=== PATIENT | male | born 1960 | race Two or more races ===

== ENCOUNTER 2019-05-01 08:43 | Day surgery (SDC) | payer OTHER ==
[~2019-05-01] VITALS: Ht 165.1 cm; Wt 67.1 kg
[2019-05-01] VITALS (10 sets, daily range): BP systolic 106–150; BP diastolic 67–85
--- NOTE | 2019-05-01 07:02 | Pre-Procedure Note/Attestation ---
Pre-Procedure Note/Attestation Complete Prior to Procedure Planned Procedure: left Procedure Narrative: left shoulder scope, sad, mini simin, rtc repair Indications for Procedure Pre-Operative Diagnosis: left shoulder rtc tear Attestation I attest that I discussed the nature of the procedure; its benefits; risks and complications; and alternatives (and the risks and benefits of such alternatives ), prior to the procedure, with the patient (or the patient's legal clearance representative). I attest that, if there was a reasonable possibility of needing a blood transfusion, the patient (or the patient's legal clearance representative) was given the [facility] standardized written summary, pursuant to the [place] Blood Safety Act ([place] Health and Safety Code # 1645, as amended). I attest that I re-evaluated the patient just prior to the surgery and that there has been no change in the patient's H&P, except as documented below: none Christofer White MD May 01, 2019 07:02
--- NOTE | 2019-05-01 08:41 | Anethesia Preoperative Eval ---
Anesthesia Pre-op PMH/ROS General Date of Evaluation: May 01, 2019 Anesthesiologist: Leon ASA Score: ASA 2 Mallampati Score Class I : Soft palate, uvula, fauces, pillars visible Class II: Soft palate, uvula, fauces visible Class III: Soft palate, base of uvula visible Class IV: Only hard plate visible Mallampati Classification: Class II Surgeon: Cindy Diagnosis: Left rotator cuff tear Surgical Procedure: left shoulder arthrscpy with rcr Anesthesia History: none Family History: no anesthesia problems Allergies: Coded Allergies: No Known Allergies (Unverified , 05/01/19) Medications: see eMAR Patient NPO?: Yes NPO Date: May 01, 2019 NPO Time: 00:00 Past Medical History Cardiovascular: Reports: HTN; Denies: CAD, RI, valve dz, arrhythmia, other Pulmonary: Denies: asthma, COPD, STACIE, other Gastrointestinal/Genitourinary: Denies: GERD, CRI, ESRD, other Neurologic/Psychiatric: Denies: dementia, CVA, depression/anxiety, TIA, other Endocrine: Denies: DM, hypothyroidism, steroids, other HEENT: Denies: cataract (L), cataract (R), glaucoma, [place] (L), [place] (R), other Hematology/Immune: Denies: anemia, DVT, bleeding disorder, other Musculoskeletal/Integumentary: Denies: OA, RA, DJD, DDD, edema, other PSxH Narrative: ex-lap, appy Anesthesia Pre-op Phys. Exam Physician Exam see chart Constitutional: NAD Cardiovascular: RRR Respiratory: CTA Airway Exam Mallampati Score: Class II MO: full ROM: full Anesthesia Pre-op A/P Labs see chart Studies Pre-op Studies: EKG - sr Risk Assessment & Plan Assessment: ASA II Plan: GA with interscalene nerve blck Status Change Before Surgery: No Pre-Antibiotics Drug: Ancef Given Within 1 Hr of Incision: Yes Carleen Sanon MD May 01, 2019 08:41
[~2019-05-01 08:43] MED LIST: ceFAZolin 1gm IVPB IVPB ONE; celeBREX 200mg Cap **SURGERY PATIENTS ONLY ORAL ONE; oxyCONTIN 20mg tab ORAL ONE
[2019-05-01] MEDS ORDERED: oxyCONTIN 20mg tab ORAL ONE (09:21)
[2019-05-01] MEDS ORDERED: celeBREX 200mg Cap **SURGERY PATIENTS ONLY ORAL ONE (09:21)
[2019-05-01] MEDS ORDERED: LR 1000ml 1,000 ML IVLG SCH (10:03)
[2019-05-01] MEDS ORDERED: DiphenhydrAMINE 50mg/ml Inj IVP PRN (10:15)
[2019-05-01] MEDS ORDERED: Ketorolac 30mg Inj IV PRN (10:15)
[2019-05-01] MEDS ORDERED: LORazepam Inj 2mg/ml 1ml IV PRN (10:15)
[2019-05-01] MEDS ORDERED: Midazolam 2mg/2ml Inj IVP PRN (10:15)
[2019-05-01] MEDS ORDERED: Hydromorphone 0.5mg/0.5ml inj IVP PRN (10:15)
[2019-05-01] MEDS ORDERED: Metoclopramide 10mg/2ml Inj IVP PRN (10:15)
[2019-05-01] MEDS ORDERED: fentaNYL 100 mcg/2 mL IV PRN (10:15)
[2019-05-01] MEDS ORDERED: Lidocaine 1% MPF 10mg/ml 5ml ONE (10:25)
[2019-05-01] MEDS ORDERED: Midazolam 2mg/2ml Inj ONE (10:25)
[2019-05-01] MEDS ORDERED: fentaNYL 100 mcg/2 mL IV ONE (10:25)
[2019-05-01] MEDS ORDERED: Propofol 200mg/20ml IV ONE (10:25)
[2019-05-01] MEDS ORDERED: LR 1000ml ONE (10:30)
[2019-05-01] MEDS ORDERED: NS Irrig 4000ml IRRIG ONE (10:30)
[2019-05-01] MEDS ORDERED: EPINEPHrine 1mg/1ml Amp ONE (11:29)
--- NOTE | 2019-05-01 12:18 | Immediate Post-Op Evaluation ---
Immediate Post-Op Evalulation Immediate Post-Op Evalulation Procedure: Left shoulder arthroscopy with rcr Date of Evaluation: May 01, 2019 Time of Evaluation: 12:19 IV Fluids: 1L Blood Products: 0 Estimated Blood Loss: min Urinary Output: 0 Blood Pressure Systolic: 113 Blood Pressure Diastolic: 67 Pulse Rate: 58 Respiratory Rate: 16 O2 Sat by Pulse Oximetry: 100 Temperature (Fahrenheit): 97.3 Pain Score (1-10): 0 Nausea: No Vomiting: No Complications 0 Patient Status: awake, reacts, patent, none Hydration Status: adequate Drug: Ancef 1g Given Within 1 Hr of Incision: Yes Carleen Sanon MD May 01, 2019 12:17
--- NOTE | 2019-05-01 12:18 | 48 Hour Post Anesthesia Eval ---
Post Anesthesia Evaluation Procedure: Left shoulder arthroscopy with rcr Date of Evaluation: May 01, 2019 Airway: patent Nausea: No Vomiting: No Pain Intensity: 0 Hydration Status: adequate Cardiopulmonary Status: at baseline Mental Status/LOC: patient returned to baseline Post-Anesthesia Complications: 0 Follow-up care needed: ready to discharge Carelen Sanon MD May 01, 2019 12:18
--- NOTE | 2019-05-01 12:34 | Brief Operative Note ---
Immediate Post Operative Note Operative Note Chief Complaint: left shoulder pain Pre-op Diagnosis: left shoulder rtc tear Procedure: left shoulder scope, sad, mini simin, rtc repair Post-op Diagnosis: same as pre-op Findings: consistent w/pre-op dx studies Surgeon: md adam Veneer Press Operator: betty bain Anesthesiologist: md oneal Anesthesia: general, regional Specimen: none Complications: none Condition: stable Fluids: ns Estimated Blood Loss: minimal Drains: none Implant(s) used?: Yes - biomet Christofer White MD May 01, 2019 12:34
--- NOTE | 2019-05-01 15:45 | Operative Note - Dictated ---
DATE OF OPERATION: 05/01/2019 PREOPERATIVE DIAGNOSIS: Left shoulder rotator cuff tear. POSTOPERATIVE DIAGNOSES: 1. Left shoulder anterior and posterior labral fraying and tearing without detachment from glenoid. 2. Left shoulder impingement. 3. Left shoulder bone spur underneath the clavicle. 4. Left shoulder 1 cm bursal-sided rotator cuff tear, unstable. PROCEDURE: 1. Left shoulder arthroscopy and extensive intra-articular shaving. 2. Left shoulder debridement of the anterior and superior labrum. 3. Left shoulder subacromial bursoscopy, bursectomy, and subacromial decompression. 4. Left shoulder mini-Jp procedure (resection of inferior 30% distal end of the clavicle for coplaning). 5. Left shoulder arthroscopic bursal-sided rotator cuff repair using single Biomet 2.9 mm JuggerKnot anchor in a horizontal mattress combined with a simple suture. SURGEON: Christofer White M.D. CHILD WELFARE ASSISTANT: Leighann Francis PA-C. Computer Support Technician was present during the actual operative portion of the case and was important and essential part of the operation. During the operation, the sociology research assistant held and operated the arthroscopic camera for visualization, assisted by manipulating the arm to help with visualization, and helped with essential parts of the repair process as necessary such as operating surgical instruments under surgeon supervision, suture management, and wound closures. ANESTHESIOLOGIST: Carleen Quintero M.D. ANESTHESIA: General LMA anesthesia. EBL: Minimal. COMPLICATIONS: None. SURGICAL INDICATION: The patient is a 58-year-old male, who sustained the above injury to his shoulder. The patient was treated non-operative initially, but this did not alleviate the patients symptoms. Therefore, after discussing all non-surgical and surgical options, and discussing all foreseeable risk and benefits of surgery, the patient opted for surgical treatment as described above. PATIENT POSITIONING: The patient was brought to the operating room table and was placed on the operating room table. All pressure points were well padded. General anesthesia was induced and patient was then placed in the lateral decubitus position. All pressure points were well padded again and an axillary roll was placed. The patient shoulder was then prepped and draped in the usual sterile fashion. Time-out was performed and the appropriate preoperative antibiotic was given by the anesthesiologist. EXAMINATION OF SHOULDER UNDER ANESTHESIA: The shoulder was examined under anesthesia with all muscles well relaxed. The shoulder was forward flexed, abducted and was placed through full range of external and internal rotation. The anterior, posterior, and inferior stability of the shoulder was checked. The exam revealed no evidence of adhesive capsulitis and no evidence of instability. PORTAL PLACEMENT: The posterior portal was established 2 cm inferior and 1 cm medial to the edge of the posterior acromion. A 1 cm skin incision was made using an eleven blade and using the blunt obturator, the cannula was gently placed through the capsule. The mid-glenoid portal was established just lateral to the coracoid process under direct visualization. Direction of the cannula was first established using a spinal needle, and subsequently, the cannula was placed through the capsule with a blunt obturator. DIAGNOSTIC ARTHROSCOPY: The biceps tendon was probed and pulled through the joint for visualization. It appeared normal. The biceps anchor was palpated with a probe and was visualized. There was some fraying of the superior labrum, but there was no detachment from glenoid. The posterior labrum and axillary recess was visualized. There was some fraying of the posterior labrum, but there was no detachment from glenoid. The glenoid articular surface was visualized and it appeared normal. The articular surface of the rotator cuff was visualized and probed next. There was no evidence of articular sided rotator cuff tear extending from the supraspinatus back to the posterior cuff. The Humeral head articular surface was then visualized. There was no evidence of articular cartilage damage. Next the anterior labrum, middle glenohumeral ligament, subscapularis tendon, and the anterior inferior glenohumeral ligament were evaluated. These structures were completely normal. At this point, the scope was moved to the mid-glenoid portal and the posterior structures including the posterior labrum, posterior capsule and posterior cuff were visualized. There was some fraying of the posterior labrum, but there was no detachment of the glenoid labrum. The subscapularis recess was devoid of any loose bodies and the anterior capsule was well attached to the humeral neck. The middle and anterior inferior glenohumeral ligament was visualized. These structures were completely normal. OPERATIVE DEBRIDEMENTS AND REPAIR: Care was given to all partial thickness tears and frayed structures in the shoulder joint. The frayed rotator cuff and labrum was debrided using a shaver initially through the anterior portal and subsequently through the posterior portal to complete the debridement. This allowed for smooth debridement of all affected structures and all loose fragments were removed. DIAGNOSTIC BURSOSCOPY AND SUBACROMIAL DECOMPRESSION: The subacromial bursa was entered from the posterior portal. The anterior portal was established under the CA ligament using a switching stick. Subacromial arthroscopy was initiated. There was extensive bursitis and thickened and inflamed bursa tissue present. The CA ligament appeared to be scuffed and frayed. The shaver was placed through the anterior cannula and debridement of the hypertrophic bursa tissue was accomplished. Once visualization was adequate, a lateral portal was established using a blunt trochar in the mid portion of the acromion bone in the anterior-posterior direction and approximately 2 cm lateral to the lateral edge of the acromion. Using combination of shaver and electrocautery the CA ligament was released from the undersurface of the acromion and a complete bursectomy was accomplished. At this point, a subacromial decompression was performed using a eron initially taking off 5-8 mm of the anterolateral edge of the acromion from the lateral portal and viewing from the posterior portal. Then the lateral border of the undersurface of the acromion was decompressed to the same dept as the anterolateral edge. A posterior trough was then created in the acromion in line with the posterior edge of the clavicle. At this point, the scope was placed in the lateral portal and the subacromial decompression was performed from the posterior portal decompressing the undersurface of the acromion to dept of 5-8 mm. The decompression was performed anterior to the previously marked trough all the way medially to the level of the AC joint. At all times, care was given not to take off too much bone in order to avoid risk of fracture of the acromion. An excellent subacromial decompression was performed in this fashion. At this point, the bursal side of the rotator cuff was examined. All the bursa over the rotator cuff was removed and the rotator cuff was examined with a probe. The arm was placed into external rotation, neutral, and then internal rotation and there was a 1 cm bursal-sided rotator cuff tear that was unstable. The scope was then placed in the posterior portal and the subacromial decompression was rechecked to assure there is no area of bone spur that would be still impinging onto the rotator cuff. EVALUATION OF DISTAL CLAVICLE AND DISTAL CLAVICLE RESECTION: Care was given to the distal end of the clavicle. Using electrocautery and carrie, the distal end of the bursa and soft tissue around the distal end of the clavicle was debrided and cleaned. Care was given not to inflict excessive trauma to the ligaments of the AC joint. The distal end of the clavicle appeared to have an inferior osteophyte extending down well bellow the level of the acromion at the level of the AC joint. This appeared to be impinging onto the supraspinatus muscle belly and the musculotendinous junction of the rotator cuff. A mini-Jp procedure was performed by using a eron to resect the inferior 30% of the distal end of the clavicle. This decompression allowed space for the inferior structures to slide without impingement. This co-plained the inferior edge of the distal clavicle with the inferior edge of the acromion. For rotator cuff repair: The scope was placed in the lateral portal and the rotator cuff was visualized. The rotator cuff revealed a bursal-sided 1 cm unstable rotator cuff tear, which was crescent-shaped. The rotator cuff foot print adjacent to the articular cartilage of the humeral head was identified. This area was debrided initially using carrie and subsequently using eron to provide adequate bleeding bony surface to accept the rotator cuff tendon. Attention was given to repair the rotator cuff with as little tension as possible. At this point, an arthroscopic punch was used to create holes for suture anchor placement at the medial edge of the foot print through separate stab wound incisions and an arthroscopic tap was used to prepare the holes. One Biomet 2.9 mm JuggerKnot anchor double loaded with two #2 non-absorbable strong sutures was placed in previously prepared holes. Using standard arthroscopic suture passing instruments, the sutures were passed through the edge of rotator cuff with minimal trauma to the cuff tissue. Care was given to obtain large enough bites of the rotator cuff for the sutures to hold well. Once the sutures were passed through the cuff, the repair was secured onto the rotator cuff foot print using SMC sliding knots followed by 3 alternating-post half hitches. This allowed tension free repair of the rotator cuff with excellent stability and water tight closure. The cuff repair security was assured by palpating the repair with a probe. CONDITION AT DISCHARGE FROM OPERATING ROOM: The skin was re-approximated and sterile dressing and sling were applied. All lap counts and instrument counts were correct. The patient tolerated the procedure well without complications and was taken to the recovery room in stable conditions. Christofer White M.D. DR: DIONICIO JOB#: [id number] CC:
[2019-05-01] MEDS ORDERED: Tylenol #3 tab (300mg/30mg) ORAL PRN (18:16)
[2019-05-01] MEDS ORDERED: D5 1/2NS 1,000 ML IV SCH (18:16)
[2019-05-01] MEDS ORDERED: HYDROcodone/Acetamin 5/325 tab ORAL PRN (18:16)
[2019-05-01] MEDS ORDERED: HYDROmorphone 1mg/ml Carpuject SUBQ PRN (18:16)
== END 2019-05-01 13:30 | disposition home or self-care (01) ==
LOC: EDSEX 08:43 → SUR 08:43
DX: M75.112 Incomplete rotator cuff tear or rupture of left shoulder, not specified as traumatic (principal); M77.9 Enthesopathy, unspecified; M75.42 Impingement syndrome of left shoulder; S43.432A Superior glenoid labrum lesion of left shoulder, initial encounter; X58.XXXA Exposure to other specified factors, initial encounter; Y92.9 Unspecified place or not applicable; I10 Essential (primary) hypertension; Z90.89 Acquired absence of other organs
CPT/HCPCS: 29823; 29824; 29826; 29827; J0171; J0690; J2250; J2704; J3010; J7120; 94003; 94150; C1713

== ENCOUNTER 2019-09-04 10:58 | Day surgery (SDC) | payer OTHER ==
[~2019-09-04] VITALS: Ht 162.6 cm; Wt 63.5 kg
[2019-09-04] VITALS (10 sets, daily range): BP systolic 127–158; BP diastolic 79–88
--- NOTE | 2019-09-04 07:06 | Pre-Procedure Note/Attestation ---
Pre-Procedure Note/Attestation Complete Prior to Procedure Planned Procedure: left Procedure Narrative: left knee scope, medial meniscectomy and chondroplasty Indications for Procedure Pre-Operative Diagnosis: left knee medial meniscus tear Attestation I attest that I discussed the nature of the procedure; its benefits; risks and complications; and alternatives (and the risks and benefits of such alternatives ), prior to the procedure, with the patient (or the patient's legal wholesale representative). I attest that, if there was a reasonable possibility of needing a blood transfusion, the patient (or the patient's legal wholesale representative) was given the [facility] standardized written summary, pursuant to the [place] Blood Safety Act ([place] Health and Safety Code # 1645, as amended). I attest that I re-evaluated the patient just prior to the surgery and that there has been no change in the patient's H&P, except as documented below: NONE Christofer White MD Sep 04, 2019 07:06
[~2019-09-04 10:58] MED LIST changes: +LR 1000ml ONE; +NS Irrig 4000ml IRRIG ONE; +oxyCONTIN 10mg tab ORAL ONE; -oxyCONTIN 20mg tab ORAL ONE
[2019-09-04] MEDS ORDERED: oxyCONTIN 10mg tab ORAL ONE (11:46)
[2019-09-04] MEDS ORDERED: celeBREX 200mg Cap **SURGERY PATIENTS ONLY ORAL ONE (11:46)
[2019-09-04] MEDS ORDERED: Sterile Water Irrig 1000ml IRRIG ONE (12:00)
[2019-09-04] MEDS ORDERED: Tylenol #3 tab (300mg/30mg) ORAL PRN (12:00)
[2019-09-04] MEDS ORDERED: LR 1000ml ONE (12:00)
[2019-09-04] MEDS ORDERED: HYDROmorphone 1mg/ml Carpuject SUBQ PRN (12:00)
[2019-09-04] MEDS ORDERED: HYDROcodone/Acetamin 5/325 tab ORAL PRN ×2 (12:00→12:45)
[2019-09-04] MEDS ORDERED: Ropivacaine 5mg/ml Vial 20ml INJ ONE (12:23)
[2019-09-04] MEDS ORDERED: LR 1000ml 1,000 ML IVLG SCH (12:31)
--- NOTE | 2019-09-04 12:34 | Anethesia Preoperative Eval ---
Anesthesia Pre-op PMH/ROS General Date of Evaluation: Sep 04, 2019 Time of Evaluation: 12:13 Anesthesiologist: Michael ASA Score: ASA 3 Mallampati Score Class I : Soft palate, uvula, fauces, pillars visible Class II: Soft palate, uvula, fauces visible Class III: Soft palate, base of uvula visible Class IV: Only hard plate visible Mallampati Classification: Class II Surgeon: Cindy Diagnosis: L Knee Pain Surgical Procedure: L Knee Arthroscopy Family History: no anesthesia problems Allergies: Coded Allergies: No Known Allergies (Unverified , 09/04/19) Medications: see eMAR Patient NPO?: Yes Past Medical History Cardiovascular: Reports: HTN Gastrointestinal/Genitourinary: Reports: GERD PSxH Narrative: L Shoulder SX Anesthesia Pre-op Phys. Exam Physician Exam Last Vital Signs Date Time Temp Pulse Resp B/P (MAP) Pulse Ox O2 Delivery O2 Flow Rate FiO2 09/04/19 11:44 Room Air 09/04/19 11:38 97.3 66 18 141/84 99 Constitutional: NAD Neurologic: CN 2-12 intact Cardiovascular: RRR Respiratory: CTA Gastrointestinal: S/NT/ND Airway Exam Mallampati Score: Class II MO: full ROM: limited Teeth: missing Anesthesia Pre-op A/P Risk Assessment & Plan Assessment: ASA 3 Plan: GA, SED Status Change Before Surgery: No Pre-Antibiotics Dru Gram Ancef IV Given Within 1 Hr of Incision: Yes Time Given: 12:46 Bakari Rodriguez MD Sep 04, 2019 12:34
[2019-09-04] MEDS ORDERED: Sodium Chloride 10ml vial INJ ONE (12:35)
[2019-09-04] MEDS ORDERED: Lidocaine 1% MPF 10mg/ml 5ml ONE (12:35)
--- NOTE | 2019-09-04 12:35 | Immediate Post-Op Evaluation ---
Immediate Post-Op Evalulation Immediate Post-Op Evalulation Procedure: L Knee Arthroscopy Date of Evaluation: Sep 04, 2019 Time of Evaluation: 13:50 IV Fluids: 500 LR Blood Products: 0 Estimated Blood Loss: 7 Urinary Output: 0 Blood Pressure Systolic: 127 Blood Pressure Diastolic: 83 Pulse Rate: 64 Respiratory Rate: 16 O2 Sat by Pulse Oximetry: 97 Temperature (Fahrenheit): 97.6 Pain Score (1-10): 2 Nausea: No Vomiting: No Complications 0 Patient Status: awake, reacts, patent, extubated, none Hydration Status: adequate Dru Gram Ancef IV Given Within 1 Hr of Incision: Yes Time Given: 12:46 Bakari Rodriguez MD Sep 04, 2019 12:35
[2019-09-04] MEDS ORDERED: Midazolam 2mg/2ml Inj ONE (12:36)
[2019-09-04] MEDS ORDERED: Ketorolac 30mg Inj IV PRN ×2 (12:45)
[2019-09-04] MEDS ORDERED: Hydromorphone 0.5mg/0.5ml inj IVP PRN (12:45)
[2019-09-04] MEDS ORDERED: Midazolam 2mg/2ml Inj IVP PRN (12:45)
[2019-09-04] MEDS ORDERED: Meperidine 25mg/0.5ml Inj (FOR RIGORS ONLY) IV PRN (12:45)
[2019-09-04] MEDS ORDERED: Labetalol 5mg/ml 20ml vial IV PRN (12:45)
[2019-09-04] MEDS ORDERED: oxyCODONE HCL/Acetaminophen 5/325mg ORAL PRN (12:45)
[2019-09-04] MEDS ORDERED: fentaNYL 100 mcg/2 mL IV PRN (12:45)
[2019-09-04] MEDS ORDERED: LORazepam Inj 2mg/ml 1ml IV PRN (12:45)
[2019-09-04] MEDS ORDERED: Atropine Sulfate 0.4mg/ml inj IVP PRN (12:45)
[2019-09-04] MEDS ORDERED: Metoclopramide 10mg/2ml Inj IVP PRN (12:45)
[2019-09-04] MEDS ORDERED: HYDROcodone/Acetamin 7.5/325 tab ORAL PRN (12:45)
[2019-09-04] MEDS ORDERED: DiphenhydrAMINE 50mg/ml Inj IVP PRN (12:45)
[2019-09-04] MEDS ORDERED: Acetaminophen (Non formulary) 100 ML IV ONE (12:45)
[2019-09-04] MEDS ORDERED: NS Irrig 2000ml IRRIG ONE ×2 (12:46→13:50)
[2019-09-04] MEDS ORDERED: fentaNYL 100 mcg/2 mL IV ONE (13:04)
--- NOTE | 2019-09-04 13:25 | Brief Operative Note ---
Immediate Post Operative Note Operative Note Chief Complaint: left knee pain Pre-op Diagnosis: left knee medial meniscus tear Procedure: left knee scope medial meniscectomy Post-op Diagnosis: same as pre-op Findings: consistent w/pre-op dx studies Surgeon: md maynor Mileage Clerk: betty bain Anesthesiologist: md aminata Anesthesia: general Specimen: none Complications: none Condition: stable Fluids: ns Estimated Blood Loss: minimal Drains: none Implant(s) used?: Christofer Sue MD Sep 04, 2019 13:25
--- NOTE | 2019-09-04 13:27 | 48 Hour Post Anesthesia Eval ---
Post Anesthesia Evaluation Procedure: L Knee Arthroscopy Date of Evaluation: Sep 04, 2019 Time of Evaluation: 15:51 Blood Pressure Systolic: 126 0: 73 Pulse Rate: 54 Respiratory Rate: 18 Temperature (Fahrenheit): 98 O2 Sat by Pulse Oximetry: 99 Airway: patent Nausea: No Vomiting: No Pain Intensity: 2 Hydration Status: adequate Cardiopulmonary Status: Stable Mental Status/LOC: patient returned to baseline Follow-up Care/Observations: 0 Post-Anesthesia Complications: 0 Follow-up care needed: ready to discharge Bakari Rodriguez MD Sep 04, 2019 13:27
--- NOTE | 2019-09-04 16:45 | Operative Note - Dictated ---
DATE OF OPERATION: 09/04/2019 PREOPERATIVE DIAGNOSIS: Left knee posterior horn medial meniscus tearing. POSTOPERATIVE DIAGNOSIS: Left knee complex tear of the posterior horn-body of the medial meniscus involving 30% of the posterior horn-body of the medial meniscus. PROCEDURE: 1. Left knee arthroscopy and extensive intra-articular shaving. 2. Left knee partial medial meniscectomy involving 30% of the posterior horn of the medial meniscus on the inferior leaflet. SURGEON: Christofer White M.D. HOST/HOSTESS GROUND: Leighann Francis PA-C. Pan Devulcanizer was present during the actual operative portion of the case and was important and essential part of the operation. During the operation, the diver assistant held and operated the arthroscopic camera for visualization, assisted by manipulating the leg to help with visualization, and helped with essential parts of the repair process as necessary such as operating surgical instruments under surgeon supervision, suture management, and wound closures. ANESTHESIOLOGIST: Bakari Rodriguez M.D. ANESTHESIA: LMA. TOURNIQUET TIME: 30 minutes. EBL: Less than 20 mL. COMPLICATIONS: None. SURGICAL INDICATION: Patient is a 59-year-old male who sustained the above injury to his knee. The patient was treated non-operative initially, but this did not alleviate the patients symptoms. Therefore, after discussing all non-surgical and surgical options, and discussing all foreseeable risk and benefits of surgery, the patient opted for surgical treatment as described above. PATIENT POSITIONING: Patient was brought to the operating room table and placed supine. All pressure points were well padded. Time out was performed and preop antibiotics were given. General Anesthesia was induced and a well padded tourniquet was placed on the thigh. The lateral post was placed and positioned to allow for opening of the medial compartment of the knee without placing pressure over the fibular head. Patients entire leg was prepped and draped in the usual sterile fashion. Time out was performed and preoperative antibiotics were given and after exsanguinating the lower extremity, the tourniquet was inflated to 275 mm of mercury. EXAMINATION OF THE KNEE UNDER ANESTHESIA: Before prepping and draping the knee and while the patient was relaxed under general anesthesia, the knee was examined for ROM, and anterior and posterior, medial and lateral, posterolateral, and posteromedial instability. Pivot shift testing was performed. There was no evidence of loss of motion or instability and the pivot shift testing was negative. PORTAL PLACEMENT: The lateral portal was placed with the knee flexed to 90 degrees at the level of inferior border of the patella in line with the lateral border of the patella. A 0.5 cm skin incision was made with an eleven blade, and using a blunt obturator, the capsule was gently penetrated. Sterile saline solution was then infused inside the knee with the aid of a pump set at 35 mm mercury pressure. Under direct visualization, placement of the medial portal was preliminary judged using a spinal needle, and it was subsequently established using the same technique as the lateral portal. Care was given not to injure the cutaneous branches of the medial saphenous nerve or the subcutaneous veins. DIAGNOSTIC ARTHROSCOPY: The suprapatellar patellar pouch was visualized. There was no evidence of scar tissue or loose fragments. The medial and lateral patellar facets and trochlear groove articular cartilage was visualized. These structures were intact and were devoid of any articular cartilage damage. The medial plica shelf and the corresponding medial femoral condyle articular cartilage were visualized. There was no significantly thickening of the medial plica shelf and there was no kissing? lesion over the medial femoral condyle. The lateral gutter and the posterolateral corner of the knee were visualized. There were no loose bodies, and the popliteus tendon and other structures of the posterolateral corner of the knee were intact intra-articularly. At this point, the knee was placed in the figure of four position and the lateral compartment was entered. The lateral femoral condyle, lateral tibial plateau, and the anterior, body, and the posterior horn of the lateral meniscus were visualized and probed. The articular surfaces were intact and devoid of articular cartilage damage. The lateral meniscus was completely intact both on its undersurface and on the top. The knee was then placed at 90 degree and the ACL and PCL were visualized and probed. The ACL was completely intact on visualization and probing, and it had excellent tension. The PCL was completely intact on visualization and probing and it had excellent tension. The medial compartment was then entered and the medial femoral condyle, medial tibial plateau, and the anterior, body, and the posterior horn of the medial meniscus were visualized and probed. The articular surfaces were intact and devoid of articular cartilage damage. There was a complex tear of the posterior horn-body of the medial meniscus with a horizontal cleavage as well as a vertical tear with a displaced fragment. This involved 30% of the posterior horn and body of the medical meniscus. The medial gutter was visualized. There was no evidence of defect or loose fragments. The scope was then brought back to the patella femoral compartment. HOST/HOSTESS GROUND: At this point, all loose debris and fragments were removed with the use of suction motorized shaver. Specific attention was given to assure all visible loose fragments were irrigated out of the knee joint with pump inflow and cannula outflow system. At this point, attention was given to the medial meniscus. Using combination of baskets and carrie, the torn portion of the medial meniscus was removed. Attention was given to remove all displaced and unstable portion of the medial meniscus while maintaining as much of the functional portion of the meniscus as possible. Approximately, 30% of the posterior horn-body of the medial meniscus was removed in this fashion. The transition between the meniscectomy portion and intact portion of the meniscus was smoothed out with combination of small baskets and carrie. Excellent transition zone was obtained in this fashion. CONDITION AT DISCHARGE FROM OPERATING ROOM: The knee was irrigated with copious amount of normal saline at the end of the procedure. The scope was removed and the water was drained. The skin edges were re-approximated and sterile dressing was applied. All lap count and instrument counts were correct. Patient tolerated the procedure well without complications and was taken to the recovery room in stable conditions. Christofer White M.D. DR: VITOR JOB#: [id number] CC:
[2019-09-04] MEDS ORDERED: D5 1/2NS 1,000 ML IV SCH (17:00)
== END 2019-09-04 15:20 | disposition home or self-care (01) ==
LOC: SUR 10:58
DX: S83.232A Complex tear of medial meniscus, current injury, left knee, initial encounter (principal); I10 Essential (primary) hypertension; K21.9 Gastro-esophageal reflux disease without esophagitis; X58.XXXA Exposure to other specified factors, initial encounter; Y92.9 Unspecified place or not applicable
CPT/HCPCS: 29881; 94003; J0131; J0690; J1100; J2250; J2405; J2704; J2795; J3010; J7120; 94150